=== PATIENT | male | born 1980 | race African-American/Black ===

== ENCOUNTER 2024-11-16 05:35 | Emergency (ER) | payer MEDICAID, OTHER, SELFPAY ==
[~2024-11-16] VITALS: Ht 170.2 cm; Wt 82.0 kg
[2024-11-16 05:38] VITALS: O2SAT 100
[2024-11-16 08:31] LABS: BASOPHILS % 0.3 % (0.0-2.0); HEMATOCRIT. 46.7 % (42.0-52.0); HEMOGLOBIN. 15.4 g/dL (14.0-18.0); MEAN CORPUSCULAR HEMOGLOBIN 32.7 pg (28.0-32.0); MEAN CORPUSCULAR VOLUME 99.3 fL (80.0-94.0); MEAN PLATELET VOLUME 9.8 fl (7.4-10.4); MONOCYTES % 3.4 % (2.0-8.0); NEUTROPHILS % 85.3 % (40.0-76.0); PLATELET 210 x1000/uL (130-400); RED CELL DISTRIBUTION WIDTH 13.8 % (11.6-14.6); WHITE BLOOD COUNT 7.9 x1000/uL (4.5-11.0)
[2024-11-16 08:37] LABS: CHLORIDE 104 mEq/L (98-107); POTASSIUM 3.9 mEq/L (3.5-5.1); SODIUM 138 mEq/L (136-145)
[2024-11-16 08:40] LABS: CARBON DIOXIDE 27 mEq/L (21-32)
[2024-11-16 08:41] LABS: CALCIUM 10.2 mg/dL (8.7-10.4)
[2024-11-16 08:45] LABS: CREATININE 1.3 mg/dL (0.6-1.3)
[2024-11-16 08:46] LABS: ETHANOL BLOOD < 10 mg/dL (<10); GLUCOSE 134 mg/dL (70-105); UREA NITROGEN BLOOD 12 mg/dL (9-23)
[2024-11-16 08:47] LABS: ALANINE AMINOTRANSFERASE 16 IU/L (10-49); ALBUMIN 4.7 g/dL (3.2-4.8); ASPARTATE AMINOTRANSFERASE 14 IU/L (<34)
[2024-11-16 08:48] LABS: BILIRUBIN DIRECT 0.2 mg/dL (<=3.0); BILIRUBIN TOTAL 0.7 mg/dL (0.1-1.0); PROTEIN TOTAL 7.9 g/dL (6.0-8.3)
[2024-11-16 08:56] LABS: INR 0.9; PROTHROMBIN TIME 10.6 sec (9.6-11.0)
[2024-11-16] MEDS: METOCLOPRAMIDE HCL 10MG/2ML VIAL IM ONE (08:58)
[2024-11-16] MEDS: MAGNESIUM/ALUMINUM HYDROXIDE/SIMETHICONE 30ML UDC PO STA (08:58)
[2024-11-16] MEDS: VISCOUS LIDOCAINE 2% 15 ML UDC PO STA (09:36)
[2024-11-16] MEDS ORDERED: METO-293 MT (12:16)
[2024-11-16] MEDS: DIPHENHYDRAMINE 50MG/ML VIAL IM ONE (12:41)
[2024-11-16] MEDS: HALOPERIDOL LACTATE 5MG/ML VIAL IM ONE (12:41)
[2024-11-16 15:49] VITALS: BP 140/80; PULSE 98; RESP 20; TEMP 36.8; O2SAT 100
== END 2024-11-16 15:50 | disposition home or self-care (01) ==
LOC: ER 05:35
DX: R10.13 Epigastric pain (principal)
CPT/HCPCS: 80076; 80048; 80320; 83690; 85025; 85610; 36415; 74176; 96372; 99285; J1200; J1630; J2765; G0480

== ENCOUNTER 2024-12-30 18:37 | Emergency (ER) | payer MEDICAID ==
[~2024-12-30] VITALS: Ht 180.3 cm; Wt 65.0 kg
[~2024-12-30 18:37] MED LIST: METO-293 MT
[2024-12-30 18:40] VITALS: O2SAT 100
[2024-12-30 18:43] VITALS: BP 123/90; PULSE 90; RESP 16; TEMP 36.4; O2SAT 100
[2024-12-30 19:49] LABS: BASOPHILS % 0.6 % (0.0-2.0); DIFFERENTIAL COMMENT 0; EOSINOPHILS % 0.7 % (0.0-5.0); HEMATOCRIT. 45.4 % (42.0-52.0); HEMOGLOBIN. 15.2 g/dL (14.0-18.0); LYMPHOCYTES % 23.2 % (20.0-50.0); MEAN CORPUSCULAR HEMOGLOBIN 32.5 pg (28.0-32.0); MEAN CORPUSCULAR HGB CONC 33.6 g/dL (31.0-37.0); MEAN CORPUSCULAR VOLUME 96.8 fL (80.0-94.0); MEAN PLATELET VOLUME 9.7 fl (7.4-10.4); MONOCYTES % 9.1 % (2.0-8.0); NEUTROPHILS % 66.4 % (40.0-76.0); PLATELET 207 x1000/uL (130-400); RED BLOOD CELL COUNT 4.69 mill/uL (4.7-6.1); RED CELL DISTRIBUTION WIDTH 13.5 % (11.6-14.6); WHITE BLOOD COUNT 8.8 x1000/uL (4.5-11.0)
[2024-12-30 19:56] LABS: CHLORIDE 102 mEq/L (98-107); POTASSIUM 3.1 mEq/L (3.5-5.1); SODIUM 137 mEq/L (136-145)
[2024-12-30 19:57] LABS: CALCIUM 9.6 mg/dL (8.7-10.4); CARBON DIOXIDE 23 mEq/L (21-32)
[2024-12-30 20:02] LABS: CREATININE 1.2 mg/dL (0.6-1.3); GLUCOSE 118 mg/dL (70-105); UREA NITROGEN BLOOD 15 mg/dL (9-23)
[2024-12-30 20:04] LABS: ALANINE AMINOTRANSFERASE 17 IU/L (10-49); ALBUMIN 4.5 g/dL (3.2-4.8); ASPARTATE AMINOTRANSFERASE 19 IU/L (<34); BILIRUBIN DIRECT 0.3 mg/dL (<=3.0); PROTEIN TOTAL 8.4 g/dL (6.0-8.3)
[2024-12-30] MEDS: HALOPERIDOL LACTATE 5MG/ML VIAL IM ONE (20:17)
[2024-12-30] MEDS: LACTATED RINGERS 1,000 ML IV ONE (20:17)
[2024-12-30] MEDS: FAMOTIDINE 20MG/2ML VIAL IV ONE (21:47)
[2024-12-30] MEDS: KCL 10MEQ/50ML PREMIX 50 ML IV ONE (21:47)
[2024-12-30] MEDS ORDERED: IOHEXOL-300 100 ML BOTTLE ONE (22:11)
[2024-12-30] MEDS ORDERED: MAG-55 MT (22:14)
[2024-12-30] MEDS ORDERED: FAMO-135 MT (22:14)
[2024-12-30] MEDS ORDERED: CAPS42.514 TP (22:16)
== END 2024-12-30 22:47 | disposition home or self-care (01) ==
LOC: ER 18:37
DX: D18.03 Hemangioma of intra-abdominal structures (principal); E87.6 Hypokalemia; R10.84 Generalized abdominal pain
CPT/HCPCS: 80076; 80048; 83690; 85025; 36415; 74177; 96365; 96372; 96375; 99285; Q9967; J3490; J1630; J3480; J7120; Z7610 ×2